=== PATIENT | male | born 1995 | race African-American/Black ===

== ENCOUNTER 2017-12-26 07:41 | Emergency (ER) | payer SELFPAY ==
[~2017-12-26] VITALS: Ht 165.1 cm; Wt 103.4 kg
[2017-12-26] MEDS ORDERED: TORADOL PO (08:16)
[2017-12-26] MEDS ORDERED: BACTROBAN TOP (08:16)
== END 2017-12-26 08:40 | disposition home or self-care (01) | DRG 918 ==
LOC: ED 07:41
DX: T65.891A Toxic effect of other specified substances, accidental (unintentional), initial encounter (principal); T21.65XA Corrosion of second degree of buttock, initial encounter

== ENCOUNTER 2019-03-14 00:23 | Emergency (ER) | payer SELFPAY ==
[~2019-03-14] VITALS: Ht 165.1 cm; Wt 100.0 kg
[~2019-03-14 00:23] MED LIST: BACTROBAN TOP; TORADOL PO
[2019-03-14] MEDS ORDERED: AMOXICILLIN500 MG PO (00:41)
[2019-03-14 00:55] VITALS: BP 129/81
== END 2019-03-14 00:55 | disposition home or self-care (01) | DRG 153 ==
LOC: ED 00:23
DX: J02.9 Acute pharyngitis, unspecified (principal); H66.91 Otitis media, unspecified, right ear